=== PATIENT | male | born 1980 | race Caucasian/White ===

== ENCOUNTER 2018-09-06 11:23 | Outpatient (CLI) | payer OTHER, SELFPAY ==
[2018-09-06 13:18] LABS: Abs Immature Grans 0.01 k/cumm (0.0-0.09); Absolute Basophil Count 0.01 k/cumm (0.0-0.2); Absolute Eosinophil Count 0.04 k/cumm (0.0-0.7); Absolute Lymphocyte Count 2.02 k/cumm (1.2-3.4); Absolute Monocyte Count 0.32 k/cumm (0.11-0.7); Absolute Neutrophil Count 2.79 k/cumm (1.2-6.7); Basophils % 0.2; Eosinophils % 0.8; HCT 42.8 % (40.0-50.0); Immature Grans % 0.2; Lymphocytes % 38.9; Mean Corpuscular Hemoglobin 31.8 pg (27.0-33.0); Mean Corpuscular Volume 90.7 fL (80-95); Mean Platelet Volume 10.5 fL (8.0-11.0); Monocytes % 6.2; Neutrophils % 53.7; Platelet Count 268 x1000/uL (130-400); RBC 4.72 m/cumm (4.50-6.00); RBC Distribution Width 12.2 % (11.8-14.1); White Blood Cell Count 5.19 k/cumm (4.4-10.8)
[2018-09-06 13:20] LABS: ALT 47 U/L (12-78); AST 19 U/L (15-37); Albumin 4.5 g/dL (3.4-5.0); Alkaline Phosphatase 62 U/L (46-116); Anion Gap 8.6 mmol/L (3-11); BUN 13 mg/dL (7-18); Bilirubin, Total 0.5 mg/dL (0.2-1.0); CO2 27.4 mmol/L (21.0-32.0); CREATININE 1.04 mg/dL (0.70-1.30); Calcium 9.9 mg/dL (8.5-10.1); Chloride 104 mmol/L (98-107); Glucose 88 mg/dL (70-100); Potassium 5.1 mmol/L (3.5-5.1); Sodium 140 mmol/L (136-145); Total Protein 7.6 g/dL (6.4-8.2)
[2018-09-06 13:26] LABS: Calculated LDL 164 mg/dL; Cholesterol 219 mg/dL (50-200); HDL Cholesterol 40 mg/dL (40-60); Triglyceride 79 mg/dL (30-150)
== END 2018-09-06 11:43 ==
PROVIDERS: PCP Family Medicine; Visit Provider Internal Medicine
DX: I10 Essential (primary) hypertension (principal); Z83.42 Family history of familial hypercholesterolemia
CPT/HCPCS: 36415; 80053; 80061; 83721; 85025

== ENCOUNTER 2020-10-24 09:03 | Outpatient (CLI) | payer OTHER, SELFPAY ==
--- NOTE | 2020-10-24 08:00 | DI.RAD_ITS ---
Exam(s) XR KNEE LT 3V AP,LAT,SHYAM EXAM: XR KNEE LT 3V AP,LAT,SHYAM CLINICAL HISTORY: left knee pain. TECHNIQUE: 2D digital imaging was performed. COMPARISON: No exams were available for comparison FINDINGS: BONES: No acute fracture is present. No bony destructive lesion is seen. JOINTS: The knee is normally aligned. Small joint effusion. SOFT TISSUE: Normal. IMPRESSION: Small joint effusion. DATA REPOSITORY: RADIATION DOSE DELIVERED:
== END 2020-10-24 09:04 | disposition home or self-care (01) ==
LOC: DIORS 09:04
PROVIDERS: PCP Nurse Practitioner Family; Referring Provider Nurse Practitioner Family; Visit Provider Student in an Organized Health Care Education/Training Program
DX: M25.562 Pain in left knee (principal); M25.462 Effusion, left knee
CPT/HCPCS: 73562

== ENCOUNTER 2020-10-24 09:52 | Outpatient (CLI) | payer OTHER, SELFPAY ==
[2020-10-24 14:07] LABS: ESR 4 mm/hr (0-15)
[2020-10-24 14:43] LABS: C-Reactive Protein 0.25 mg/dL (0.0-0.3)
[2020-10-25 10:23] LABS: Lyme Ab w Rflx to Lyme Confirm Negative (Negative)
[2020-10-26 14:12] LABS: Anaplasma phagocytophilum Negative (Negative); B. miyamotoi PCR Negative (Negative); Babesia divergens/MO-1 Negative (Negative); Babesia duncani Negative (Negative); Babesia microti Negative (Negative); Ehrlichia chaffeensis Negative (Negative); Ehrlichia ewingii/canis Negative (Negative); Ehrlichia muris eauclairensis Negative (Negative)
== END 2020-10-24 09:53 | disposition home or self-care (01) ==
LOC: LBO 09:54
PROVIDERS: PCP Nurse Practitioner Family; Visit Provider Student in an Organized Health Care Education/Training Program
DX: M25.562 Pain in left knee (principal); M25.462 Effusion, left knee
CPT/HCPCS: 36415; 85652; 87798; 86140; 86618

== ENCOUNTER 2022-05-06 02:29 | Outpatient (CLI) | payer OTHER, SELFPAY ==
[2022-05-06 13:06] LABS: Anion Gap 7.9 mmol/L (3-11); BUN 19 mg/dL (7-18); CO2 26.1 mmol/L (21.0-32.0); CREATININE 1.1 mg/dL (0.70-1.30); Calcium 9.6 mg/dL (8.5-10.1); Calculated LDL 187 mg/dL (<100); Chloride 108 mmol/L (98-107); Cholesterol 252 mg/dL (<200); Estimated GFR 86.49 (mL/min/1.73m2); Glucose 104 mg/dL (74-106); HDL Cholesterol 45 mg/dL (40-60); Potassium 4.5 mmol/L (3.5-5.1); Sodium 142 mmol/L (136-145); Triglyceride 100 mg/dL (<150)
[2022-05-07 10:12] LABS: Hepatitis C Ab w Rflx HCV PCR Negative (Negative)
[2022-05-07 10:59] LABS: HIV-1/2 Ag & Ab Screen Negative (Negative)
== END 2022-05-06 02:30 | disposition home or self-care (01) ==
LOC: LOS 02:29
PROVIDERS: PCP Nurse Practitioner Family; Visit Provider Nurse Practitioner Family
DX: E78.00 Pure hypercholesterolemia, unspecified (principal); Z13.1 Encounter for screening for diabetes mellitus; Z11.4 Encounter for screening for human immunodeficiency virus [HIV]; Z11.59 Encounter for screening for other viral diseases
CPT/HCPCS: 36415; 80048; 80061; 86803; 87389

== ENCOUNTER 2022-05-07 01:19 | Outpatient (CLI) | payer OTHER, SELFPAY ==
--- NOTE | 2022-05-07 08:00 | DI.MRI_ITS ---
Exam(s) MR BRAIN WO EXAM: MR BRAIN WO CLINICAL HISTORY: new onset post-exercise headache,G44.84 TECHNIQUE: Multiplanar multisequence MRI of the brain was performed. COMPARISON: No exams were available for comparison FINDINGS: VENTRICLES AND EXTRA AXIAL SPACES: Normal in size and morphology for the patient's age. MIDLINE SHIFT: None. CEREBRAL PARENCHYMA: No focus of restricted diffusion to suggest acute infarct. No space-occupying le matty identified. HEMORRHAGE: None. BRAINSTEM/CEREBELLUM: Normal. CALVARIUM: Normal. No concerning osseous lesions. VISUALIZED PARANASAL SINUSES/MASTOIDS:Clear. QU[place]ULT OF [place]: Normal flow void. PITUITARY GLAND: Unremarkable. OTHER FINDINGS: None. IMPRESSION: No acute abnormality. DATA REPOSITORY:
== END 2022-05-07 01:39 ==
LOC: DI 01:19
PROVIDERS: PCP Nurse Practitioner Family; Visit Provider Nurse Practitioner Family
DX: G44.84 Primary exertional headache (principal)
CPT/HCPCS: 70551

== ENCOUNTER 2024-01-14 12:18 | Outpatient (CLI) | payer BC, SELFPAY ==
[2024-01-14 11:55] LABS: Abs Immature Grans 0.01 10^3/uL (0.0-0.06); Absolute Basophil Count 0.03 10^3/uL (0.0-0.2); Absolute Eosinophil Count 0.02 10^3/uL (0.0-0.7); Absolute Lymphocyte Count 2.53 10^3/uL (1.2-3.4); Absolute Monocyte Count 0.44 10^3/uL (0.1-0.8); Absolute Neutrophil Count 3.51 10^3/uL (1.2-6.7); Basophils % 0.5 %; Eosinophils % 0.3 %; HCT 46.8 % (40.0-50.0); HGB 15.5 g/dL (13.5-17.5); Immature Grans % 0.2 %; Lymphocytes % 38.7 %; MCH 31.4 pg (27.0-33.0); MCHC 33.1 % (32.0-36.0); MCV 95 fL (80-95); MPV 9.5 fL (8.0-11.0); Monocytes % 6.7 %; Neutrophils % 53.6 %; Platelet Count 312 10^3/uL (130-400); RBC 4.94 10^6/uL (4.36-5.78); RDW 12.1 % (11.8-14.1); RDW-SD 42.2 fL; WBC 6.54 10^3/uL (4.4-10.8)
[2024-01-14 11:59] LABS: Hemoglobin A1C 5.4 % (<5.7)
[2024-01-14 12:40] LABS: Iron 103 ug/dL (65-175); Total Iron Binding Capacity 317 ug/dL (250-450)
[2024-01-14 12:52] LABS: CREATININE 1.2 mg/dL (0.70-1.30); Calculated LDL 182 mg/dL (<100); Cholesterol 247 mg/dL (<200); Estimated GFR 76.95 (mL/min/1.73m2); Ferritin 326 ng/mL (26-388); HDL Cholesterol 49 mg/dL (40-60); Potassium 4.1 mmol/L (3.5-5.1); TSH (W/Ref FT4) 1.77 uIU/mL (0.36-3.74); Triglyceride 83 mg/dL (<150); Vitamin B12 429 pg/mL (193-986); Vitamin D 25 Total 22.4 ng/mL (30-100)
[2024-01-15 10:15] LABS: Transferrin 243 mg/dL (201-352)
[2024-01-19 10:51] LABS: Testosterone, Free 12.3 ng/dL (4.46-17.1); Testosterone, Total 519 ng/dL (240-950)
== END 2024-01-14 12:19 | disposition home or self-care (01) ==
LOC: LBO 12:19
PROVIDERS: PCP Nurse Practitioner Family; Visit Provider Nurse Practitioner Family
DX: R53.83 Other fatigue (principal); I10 Essential (primary) hypertension; R23.1 Pallor; R23.2 Flushing; Z13.1 Encounter for screening for diabetes mellitus; Z13.220 Encounter for screening for lipoid disorders
CPT/HCPCS: 36415; 80061; 82306; 84402; 84403; 82565; 82607; 82728; 83036; 83540; 83550; 84132; 84443; 84466; 85025